=== PATIENT | female | born 1975 | race Caucasian/White ===

== ENCOUNTER → 2025-03-15 | Outpatient (CLI) | payer OTHER | LOC: M PLAIMG 14:26 | PROVIDERS: ATTEND Physician Assistant | DX: G93.2 Benign intracranial hypertension (principal); R90.89 Other abnormal findings on diagnostic imaging of central nervous system ==

== ENCOUNTER 2025-05-23 08:16 | Day surgery (SDC) | payer OTHER ==
[~2025-05-23] VITALS: Ht 165.1 cm; Wt 104.3 kg
[~2025-05-23 08:16] MED LIST: FLUO-290 PO; LANS15CA PO; TOPA100T12 PO
[2025-05-23] MEDS ORDERED: LIDOCAINE 2% 100 MG/5 ML SDV (FOR ANES.) As Ordered ONE (09:42)
[2025-05-23] MEDS ORDERED: ONDANSETRON 4MG 2ML VIAL As Ordered ONE (09:42)
[2025-05-23 10:30] VITALS: BP 119/74; TEMP 97; O2SAT 95
== END 2025-05-23 10:35 | disposition home or self-care (01) ==
LOC: M OPP 08:16
PROVIDERS: ATTEND Internal Medicine Gastroenterology
DX: Z12.11 Encounter for screening for malignant neoplasm of colon (principal); K57.30 Diverticulosis of large intestine without perforation or abscess without bleeding; K64.0 First degree hemorrhoids; R12 Heartburn; Z88.5 Allergy status to narcotic agent; Z79.899 Other long term (current) drug therapy
CPT/HCPCS: 43239; 45378; 88305; J2405

== ENCOUNTER 2025-05-29 10:22 | Emergency (ER) | payer OTHER ==
[~2025-05-29] VITALS: Ht 165.1 cm; Wt 103.8 kg
[2025-05-29 11:05] LABS: BASO # 0.1 10^3/uL (0.0-0.2); BASO % 0.4 % (0.0-1.0); EOS # 0.1 10^3/uL (0.0-0.5); EOS % 1.1 % (0.0-3.0); LYMPH # 2.7 10^3/uL (1.5-5.0); LYMPH % 23.4 % (24.0-44.0); MONO # 0.8 10^3/uL (0.0-0.8); MONO % 7.1 % (2.0-8.0); NEUTROPHILS # 7.8 10^3/uL (1.5-8.5); NEUTROPHILS % 67.6 % (36.0-66.0); PLATELET COUNT, AUTOMATED 387 10^3/uL (150-450)
[2025-05-29 11:30] LABS: CALCIUM LEVEL 9.2 MG/DL (8.5-10.1); CARBON DIOXIDE LEVEL 21 MMOL/L (20-31); CHLORIDE LEVEL 109 MMOL/L (98-107); CREATININE FOR GFR 0.87 MG/DL (0.55-1.30); GLOMERULAR FILTRATION RATE 80.6 (>51); POTASSIUM SERUM 3.7 MMOL/L (3.5-5.1); SODIUM LEVEL 143 MMOL/L (136-145)
[2025-05-29] MEDS: ONDANSETRON 4MG 2ML VIAL IV ONE (11:36)
[2025-05-29] MEDS: NS (Normal Saline) 0.9% 1,000 ML IV ONE ×2 (11:36→14:15)
[2025-05-29 12:00] LABS: ALT/SGPT 35 U/L (7.0-40); AST/SGOT 24 U/L (<34)
[2025-05-29] MEDS ORDERED: ISOVUE-370 76% 100 ML VIAL As Ordered ONE (12:08)
[2025-05-29] MEDS ORDERED: AZIT500T5 PO (15:08)
[2025-05-29 16:00] VITALS: BP 111/67; TEMP 97.5; O2SAT 98
== END 2025-05-29 16:13 | disposition home or self-care (01) ==
LOC: M ED 10:22
DX: R19.7 Diarrhea, unspecified (principal); R51.9 Headache, unspecified; K21.9 Gastro-esophageal reflux disease without esophagitis; F41.9 Anxiety disorder, unspecified; F10.10 Alcohol abuse, uncomplicated; Z88.5 Allergy status to narcotic agent; Z90.49 Acquired absence of other specified parts of digestive tract; Z79.899 Other long term (current) drug therapy
CPT/HCPCS: 74021; 74177; 80048; 80076; 83605; 83690; 85025; 87507; 96361; 96374; 96375; 99284; J2405; J3010; Q9967